=== PATIENT | male | born 1995 | race Caucasian/White ===

== ENCOUNTER 2021-12-08 08:00 | Outpatient (RCR) | payer MEDICARE, MEDICAID, SELFPAY ==
--- NOTE | 2021-11-04 08:09 | HP.OTEVAL ---
Patient's Visit Information ESTELA LEON Jr. is a 26 year old M, referred to Occupational Therapy by Dr. 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 Date of Evaluation: 11/02/21 Occupational Therapist: Josi Preston, OTR/L, CHT - Subjective Pt. is a 26 y/o male. 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 He was sent for this OT evaluation by Dr. Friedman for decreased auto damage appraiser strength of left hand and history of stroke with residual effects. Pt. arrived with grandjose alfredo (legal guardian). Pt. does not speak, he gestures and grunts. Pt. appears to understand questions and directions. Pt. currently works at [employer]. L hand does not bother pt., however lizeth would like pt. to increase L hand strength and increase participation in home tasks. - ADLs Comments: Lizeth assists with bathing, stating that she is particular about his cleanliness. Lizeth reports pt. dresses himself at setup level. ma does meal prep including cutting meat. - ROM ROM Comments: ROM - Strength Shoulder: R25.3 L 21.5 Elbow: R12.8 L12.6 Capacity Planning Analyst: R 15# L 5# Lateral Pinch: R 10# L8# Tripod Pinch: R 10# 2# Tip-to-Tip Pinch: R 8# L3# - Sensation Sensation Comments: no c/o deficits with sensation - Movement Muscle Tone: hypotonia Tremors: essential in L hand - Cognitive Skills Follows Directions: Yes - requires step by step directions - Transfers Transfers: walks independently - Quick DASH-Disab of Arm,Shoulder& Hand Quick DASH Score: 35.0000 - Goals Goal:: Pt. will increase UB shoulder strength by 10# (from R25.3 L 21.5 to R 35.3 L 31.5) to improve independence with home tasks around home by dc. Pt. will increase B hand strength by 10# (from R 15# L 5#) to improve with IADL tasks (fishing) by dc. Goal:: Pt. will improve hand strength for meal prep (ex: to cut up food) by dc. - Rehabilitation General Assessment: Pt was referred by Dr. Friedman for decreased auto damage appraiser strength in L hand & history of stroke with residual effects. Stroke was intra uterine. Lizeth (caregiver) expressed concerns related to hand function and functional performance with IADL tasks. Educated pt. on what to expect from OT services. Completed orange theraband exercises and auto damage appraiser strengthening exercises during the eval. Decreased B hand strength and B UB strength has decreased pt's independence with IADL's and FM tasks. He would benefit from skilled OT services 2x a week for 6 weeks to increase/improve B UB strength, B hand strength, B FM coordination to improve with IADL's such as fishing and home tasks. Pt. & guardian demo'd understanding & agreeable to POC. Therapy session was directly supervised and doc. reviewed and approved by Josi Preston OTR/L,CHT Rehabilitation Potential: Fair - Anticipated Interventions Strengthening, Joint Protection/Energy Conservation, Ergonomic Education, Fine Motor Coord/Alex, Neuro Reeducation, Caregiver Training, Home Program - Visit Plan Frequency: 2x /Week Duration: 6 Weeks General Plan: strengthening TEXT: Thank you for the opportunity to evaluate your patient. For Medicare and Medicare HMO plans, please review the plan of care and approve it. It will need to be FAXED BACK to us at [phone] for Medicare purposes. Please let me know if there are questions or concerns regarding this plan of care. Physician Signature: Date:
--- NOTE | 2021-12-08 08:48 | HP.OTDCSUM ---
It has been my pleasure to treat ESTELA LEON Jr. under orders from Dr. 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 Please see the following information for a summary of their discharge status. % Improvement: 45 Objective/Function: waiter/waitress first class strength R 35# L 20#. shoulder strength R 22.8#, 15.9#. bicep strength R 16# L12.9#. pt. has participated in 6 OT sessions that engaged him in UB strengthening, BTE, and kitchen tasks. Patient Goals: Regain Strength, Improve Fine Motor Skills, Use Hand/Wrist/Arm Normally Again, Resume Hobbies Other: R handed. 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 Preparing simple meals. Prepare Goal:: Pt. will increase UB shoulder strength by 10# (from R25.3 L 21.5 to R 35.3 L 31.5) to improve independence with home tasks around home by dc. Pt. will increase B hand strength by 10# (from R 15# L 5#) to improve with IADL tasks (fishing) by dc. Goal:: Pt. will improve hand strength for meal prep (ex: to cut up food) by dc. Plan: DC this date. Discharge Comments: Lizeth thinks that he is 45% improved with helping at home and overall. Quick Dash score 19. He has attended 6 OT visits. Pt. was progressing towards goals with assisting lizeth at home becoming more indep with IADL tasks, and increasing UB & hand strength for IADL tasks. 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 Thank you for the referral of this patient. Sincerely, Josi Preston, OTR/L, CHT
== END 2021-12-08 14:46 | disposition home or self-care (01) ==
LOC: OT 08:00
PROVIDERS: PCP Student in an Organized Health Care Education/Training Program; Referring Provider Student in an Organized Health Care Education/Training Program; Visit Provider Student in an Organized Health Care Education/Training Program
DX: I69.30 Unspecified sequelae of cerebral infarction (principal); R29.898 Other symptoms and signs involving the musculoskeletal system
CPT/HCPCS: 97110; 97165; 97530

== ENCOUNTER 2022-02-21 07:55 | Outpatient (RCR) | payer MEDICARE, MEDICAID, SELFPAY ==
--- NOTE | 2022-02-21 14:50 | HP.SP.EV_ITS ---
History - History Date of Eval: 02/21/22 Medical Diagnosis (from RX): Stroke Previous speech therapy: Yes Other Relevant Medical History/Diagnoses/Surgery: ESTELA LEON is a 26 year old who presents to [facility] speech therapy today with his guardian, Grandma. Pt s/p CVA. Pt dx with Intellectual disability (F79), hx of stroke with residual effects (I69.30), developmental delay (R62.5), and nonintractable epilepsy (G40.909). Grandma stating the purpose of their appointment today was to be evaluated for a speech-generating device, which has been ordered by the probate court. Upon further probing of Pt's medical hx, Pt reportedly has a speech device that he acquired as a child. Grandma reporting at that time Estela did not prefer to use the device and it was reportedly too big for him. Pt communicates now with some verbal words and pointing. Grandma reporting that Estela's mother has possession of the device - they will reach out to her to acquire. Grandma reporting Estela understands everything said to him. 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 Pt enjoys playing softball, bowling and basketball for the [employer]. Smoking Status: Never smoker - Pain Is pain an issue with your current prescribed condition?: No Cognitive Linguistic Comments - Comments Qualitative Data Pt participated in basic conversation with CHEMIST INTERN and his grandma via answering yes/no questions with verbal response and non-verbal communication via head nods and facial expressions. Pt appearing to follow all conversation held during the evaluation today. Pt communicating let's go and thank you at the end of the session. Further evaluation needed for AAC recommendations. Pt to bring the device he currently has possession of at home from childhood. Discussed trials with this device would determine if a new device evaluation was warranted or if this one could be updated to fit Pt's current needs and lifestyle. Suspect Pt would be very successful with a speech device. Pt appears excited to beginning to learn how to use a device. Should Pt's current device not be appropriate for him, will explore other options on getting him a device. Plan - Plan Plan: Will recommend Pt for weekly outpatient speech therapy to address communication w/speech-generating device. Pt would benefit from direction instruction on how to use the speech device for Pt, Pt?s family, and potentially some direction with workshop staff. Without skilled ST services, the Pt is at risk for difficulty communicating basic, medical, emergent, social wants & needs, and interacting with family/friends at home, during social interactions, and at workshop. - Recommendations Treatment Warranted: Yes Treatment Warranted: Receptive/ Expressive Language, Other: Comment: AAC - Progress Prognosis: Excellent - Frequency Frequency: 1x/Week Additional (Frequency): 60 min sessions Duration: 6 Months - Goal #1-5 Goal #1: Goals to be determined following collection of data with Pt's current speech-generating device at follow-up session. Education - Patient has Indicated that the Following Identified Educational Needs: Cognitively Impaired - Patient Instruction Patient Education: Diagnosis, Treatment Plan Person Taught: Legal Guardian Teaching Method: Discussion, Demonstration Response to teaching: Return demonstration, Verbalize understanding
--- NOTE | 2022-06-08 15:08 | HP.SP.DC_ITS ---
ST Discharge Summary - Discharged: Discharge: ESTELA LEON is a 27 year old male who presented to [facility] on 02/21/22 following a dx of Intellectual disability (F79), hx of stroke with residual effects (I69.30), developmental delay (R62.5), and nonintractable epilepsy (G40.909). Pt attended initial evaluation with recommendations for further evaluation needed with Pt's current AAC he has possession of at home from childhood. Discussed trials with this device would determine if a new device evaluation was warranted or if this one could be updated to fit Pt's current needs and lifestyle. Suspect Pt would be very successful with a speech device. Pt appeared excited to beginning to learn how to use a device. Discussed should Pt's current device not be appropriate for him, will explore other options on getting him a device. After evaluation, follow up visits were not scheduled. Pt being discharged from speech therapy caseload on this date 06/08/22 d/t Pt absence in attending additional treatment visits. Thank you for allowing me to participate in the care of your patient. Will reevaluate at Pt?s request following script from physician.
== END 2022-02-21 19:00 | disposition home or self-care (01) ==
LOC: SP 07:55
PROVIDERS: PCP Student in an Organized Health Care Education/Training Program; Referring Provider Nurse Practitioner Family; Visit Provider Nurse Practitioner Family
DX: F79 Unspecified intellectual disabilities (principal); I69.30 Unspecified sequelae of cerebral infarction; R62.50 Unspecified lack of expected normal physiological development in childhood; G40.909 Epilepsy, unspecified, not intractable, without status epilepticus; R47.89 Other speech disturbances
CPT/HCPCS: 92523

== ENCOUNTER 2022-08-08 16:03 | Emergency (ER) | payer MEDICARE, MEDICAID, SELFPAY ==
[2022-08-08 16:07] VITALS: BP 136/100; PULSE 71; RESP 14; TEMP 36.1; O2SAT 99; BMI 21.2
--- NOTE | 2022-08-08 18:12 | EDS_ITS ---
HPI History of Present Illness Chief Complaint: Laceration Narrative Narrative: History and physical is limited secondary to the patient's intellectual disability/delay and is nonverbal. His grandfather is present at the bedside. 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 He cut his right middle finger on a piece of metal. He is right-hand dominant. They are unsure about his tetanus immunization status. He denies other injury. This happened approximately 3 hours ago. He presents with his right middle finger wrapped in paper towel and Scotch tape to stop the bleeding. Tetanus Immunization: Unknown PFSH PFS Medical History no medical history Allergy/AdvReac Type Severity Reaction Status Date / Time No Known Allergies Allergy Verified 08/08/22 16:06 Surgical History no surgical history Social History Smoking Status: Never smoker ROS ROS ED ROS Narrative Obtained through relative. Limited secondary to patient's IDD. Constitutional: No fever, no chills. HEENT: No sore throat. No neck pain. No loss of vision. No rhinorrhea. Cardiovascular: No chest pain. No palpitations. No pedal edema. Respiratory: No cough, no shortness of breath. Abdominal: No abdominal pain. No nausea. No vomiting. Genitourinary: No dysuria. No hematuria. Musculoskeletal: No myalgias. No arthralgias. Laceration to finger pad of right middle finger. Neurologic: No headaches. No dizziness. No lightheadedness. Skin: No rash. No change in color. Psychiatric: No depression. No anxiety. EXAM Physical Exam Narrative Exam Narrative: Afebrile. Vital signs noted. HEENT: Normocephalic. Atraumatic. PERRL, EOMI. Neck soft and supple. No point tenderness or step off. Cardiovascular: Regular rate and rhythm. No murmurs, rubs, or gallops appreciated. Respiratory: No tachypnea. Lungs clear to auscultation bilaterally. Gastrointestinal: Abdomen soft, nontender, with normoactive bowel sounds. No rebound or guarding. Neurological: Awake. Alert. Nonfocal, nonlateralizing. Skin: No rash. Normal color. No pallor. Inspection of the finger pad of the right middle finger does show a 1 cm laceration, not gaping, with minimal active bleeding. Good capillary refill. Full flexion and extension of right middle finger at DIP and PIP joints, including MCP joint. Musculoskeletal: No pedal edema. Full range of motion extremities. Const Vital Signs: 08/08/22 16:07 Temperature 97 F L Temperature Source Temporal Pulse Rate 71 Respiratory Rate 14 Blood Pressure 136/100 H Blood Pressure Mean 112 Pulse Ox 99 Oxygen Delivery Method Room Air MDM MDM MDM Narrative Medical decision making narrative: Patient was given a Boostrix immunization. Direct pressure was applied with sterile gauze to the wound. Lidocaine 1% will be used as a local anesthetic and I will suture his finger pad closed to achieve hemostasis if it is not achieved through direct pressure. In discussion with his grandfather, this injury was sustained at his workshop but not at his actual workplace, meaning that this is not something that they want to put through the [employer]. See procedure note for details. They were informed of the risk of infection and scarring and acknowledges understanding. As this is not going through the [employer], he will follow-up with his primary care provider in 10 days for suture removal. He is to keep the area clean and dry and to look for signs of infection. I feel he can be discharged safely home with follow-up. Return instructions to the emergency department were reviewed. Disposition is discharged home in stable condition. Procedures Lacerations Right middle finger pad: Length: 0.39 in Depth: Skin Shape: Linear Prep: Sterile Conditions Laceration repair: Irrigated, Lidocaine, Local and Wound explored Irrigated (ml): 200 Number of Sutures/Spring: 3 Suture Information: Ethilon, Simple and 4-0 (3 simple interrupted sutures) Comment: Patient tolerated procedure well. Hemostasis achieved. Discharge Plan Triage Chief Complaint: Laceration ED Provider: Ed Veronica Dx/Rx/DC Orders Clinical Impression: Laceration of finger of right hand, Tfxaauwpzv-gqikujwhv-ynkslmd (DPT) vaccination administered at current visit Instructions: ED Laceration, Hand: All Closures Primary Care Provider: Juan Antonio Friedman Referrals: Juan Antonio Friedman DO [Primary Care Provider] - 10 Day for suture removal Disposition Disposition: Home, Self Care
[2022-08-08] MEDS: Diphth,Pertuss(Acell),Tet Vac 0.5 ML Vial IM (18:58)
[2022-08-08] MEDS: Lidocaine 1% (20 ml mdv) 20 ML Vial INFILT (19:58)
== END 2022-08-08 20:00 | disposition home or self-care (01) ==
PROVIDERS: Emergency Provider Emergency Medicine; PCP Student in an Organized Health Care Education/Training Program; Visit Provider Emergency Medicine
DX: S61.212A Laceration without foreign body of right middle finger without damage to nail, initial encounter (principal); F79 Unspecified intellectual disabilities; R47.9 Unspecified speech disturbances; Y92.69 Other specified industrial and construction area as the place of occurrence of the external cause; Z23 Encounter for immunization; W26.8XXA Contact with other sharp object(s), not elsewhere classified, initial encounter
CPT/HCPCS: 12001; 90471; 90715; 99283

== ENCOUNTER 2023-12-25 11:18 | Emergency (ER) | payer MEDICARE, MEDICAID, SELFPAY ==
[2023-12-25 11:19] VITALS: BP 152/99; PULSE 79; RESP 20; TEMP 36.8; O2SAT 97; BMI 17.6
--- NOTE | 2023-12-25 11:29 | ED.VIS.FALL ---
HPI HPI - Fall History of Present Illness Chief Complaint: Fall Informant: family Occured/Mechanism Occurred: Today Mechanism/Context: Yes same level fall Pain/Injury Location: Right frontal/temporal area Pain Location: head Worsened by: Nothing Relieved by: Nothing Associated Symptoms Associated Symptoms: Positive for Loss of consciousness Narrative Narrative: Patient presents after a fall that occurred today. Patient was apparently playing basketball when he fell. Patient fell forward onto his head. Family states the patient had a brief episode of loss of consciousness. Family states that the patient had a possible seizure today. Family states patient has a history of seizures but has not had a seizure in a long time. Patient is nonverbal and is a poor informant. Because of the unresponsive episode, EMS was called. Patient was placed in a cervical collar and brought to the emergency department. Family states patient is back to his baseline at this time. [facility] Medical History Weakness Epilepsy Development disorder, child CVA (cerebral vascular accident) Intellectual disability Allergy/AdvReac Type Severity Reaction Status Date / Time No Known Allergies Allergy Verified 08/08/22 16:06 Surgical History H/O hernia repair Social History Smoking Status: Never smoker ROS ROS ED Review of Systems ROS Unobtainable: due to mental condition EXAM Physical Exam Const Vital Signs: 12/25/23 11:19 12/25/23 11:27 12/25/23 12:18 Temperature 98.3 F Temperature Source Temporal Pulse Rate 79 82 Respiratory Rate 20 H 20 H Respiratory Effort Normal Non-Labored Respiratory Depth Normal Respiratory Pattern Normal Blood Pressure 152/99 H 155/99 H Blood Pressure Mean 116 117 Pulse Ox 97 96 Oxygen Delivery Method Room Air Room Air Room Air 12/25/23 13:00 12/25/23 14:00 Temperature Temperature Source Pulse Rate 84 85 Respiratory Rate 18 16 Respiratory Effort Respiratory Depth Respiratory Pattern Blood Pressure 152/99 H 147/99 H Blood Pressure Mean 116 115 Pulse Ox 97 96 Oxygen Delivery Method Room Air Positive well nourished and well developed General Appearance ED: well developed and NAD HEENT HEENT Narrative: There is a superficial abrasion and mild tenderness over the right frontal/temporal area. There is no bony crepitance or step-off noted. There is no active bleeding noted. There are no foreign bodies noted. Eyes PERRL Neck Neck Narrative: There is mild tenderness over the cervical spine and paraspinal muscles. There is no bony crepitance or step-off noted. Cervical collar is in place. Resp normal respiratory effort and clear to auscultation bilaterally Cardio regular rate and regular rhythm GI non-distended Palpation: soft Extremity Extremity Narrative: There is an abrasion over the anterior aspect of the right knee. There is no active bleeding noted. There is no foreign body noted. There is good range of motion of the right knee. There is no deformity noted. Neuro oriented x3, CN's II-XII intact bilaterally, moves all extremities, no focal motor deficits and no sensory deficits noted [place] Coma Scale: document GCS findings Spontaneous Obeys Commands Oriented 15 Sensorium / Orientation: alert Motor Exam: strength 5/5 throughout Psych mental status grossly normal MDM MDM MDM Narrative Medical decision making narrative: Differential diagnosis includes closed head injury, intracranial bleeding, cervical spine fracture, seizure, and contusion. CT scan of the brain will be obtained to assess for intracranial bleeding. CT scan of the cervical spine will be obtained to assess for cervical spine fracture. CBC will be obtained to assess for leukocytosis and anemia. Basic metabolic profile will be obtained to assess for electrolyte abnormality and renal function. Tegretol level will be obtained to assess for therapeutic level. Lab Data Attestation: I reviewed the patient's lab results. Lab results narrative: CBC was reviewed and was within normal limits. Basic metabolic profile was reviewed. Sodium was slightly low at 130. Potassium was 3.1. Chloride was slightly low at 93. The remainder was within normal limits. Carbamazepine level was reviewed and was low at less than 0.5. Labs: Laboratory Results - last 24 hr 12/25/23 12:15 WBC 7.6 RBC 4.45 L Hgb 14.5 Hct 40.8 MCV 91.7 MCH 32.6 H MCHC 35.5 RDW Std Deviation 39.5 RDW Coeff of Marco 11.6 Plt Count 155 MPV 9.3 Immature Gran % (Auto) 0.500 Neut % (Auto) 80.7 H Lymph % (Auto) 14.0 L [place] % (Auto) 4.1 Eos % (Auto) 0.3 Baso % (Auto) 0.4 Absolute Neuts (auto) 6.2 Absolute Lymphs (auto) 1.07 Nucleated RBC % 0 Sodium 130 L Potassium 3.1 L Chloride 93 L Carbon Dioxide 30.0 Anion Gap 7 BUN 10 Creatinine 0.79 Estim Creat Clear Calc 99.92 Est GFR (MDRD) Af Amer 149 Est GFR (MDRD) Non-Af 123 BUN/Creatinine Ratio 12.7 Glucose 121 H Calcium 8.6 Carbamazepine < 0.5 L Radiography Diagnostic Testing: Clinical Impression(s) from Imaging Studies Brain CT 12/25/23 12:34 IMPRESSION: Developmental cerebral abnormalities as described on prior MRI scan of the brain. No acute abnormality is seen. Dilated ventricles unchanged. Electronically Signed: Kenn Mathews MD at 12:47 EDT , Cervical Spine CT 12/25/23 12:34 IMPRESSION: Mild degree of disc space narrowing and anterior spondylosis at the C5-C6 level. Reversal of the normal cervical lordosis. Electronically Signed: Kenn Mathews MD at 12:48 EDT , CT scan of the brain was obtained. There is no acute intracranial abnormality. There are developmental cerebral abnormalities previously noted on prior MRI. This was interpreted by the radiologist and was also independently reviewed by myself. CT scan of the cervical spine was obtained. There is mild disc space narrowing and anterior spondylosis at C5-C6. There is no acute fracture noted. There is reversal of the normal cervical lordosis. This was interpreted by the radiologist was also independently reviewed by myself. Discharge Plan Triage Chief Complaint: Fall ED Provider: Dax Lofton Dx/Rx/DC Orders Clinical Impression: Syncope and collapse, Fall Primary Care Provider: Juan Antonio Friedman Referrals: Juan Antonio Friedman DO [Primary Care Provider] - 3-5 Days Print Language: Thai Disposition Disposition: Home, Self Care
[2023-12-25 12:18] VITALS: BP 155/99; PULSE 82; RESP 20; O2SAT 96
[2023-12-25 12:29] LABS: Absolute Lymphocyte Count 1.07 X10^3/uL (0.83-4.51); Absolute Neutrophil Count 6.2 X10^3/uL (2.0-7.7); Basophil# 0.03 X10^3/uL; Basophil% 0.4 % (0-1); Eosinophil# 0.02 X10^3/uL; Eosinophils% 0.3 % (0-5); Hematocrit 40.8 % (40-54); Hemoglobin 14.5 g/dL (13.0-16.5); Lymphocyte # 1.07 X10^3/ul (0.83-4.51); Mean Corp Hgb Conc 35.5 g/dL (32-36); Mean Corpuscular Hgb 32.6 pg (27.0-32.0); Mean Corpuscular Volume 91.7 fL (80-94); Mean Platelet Vol. 9.3 fl (6.2-12.0); Monocyte# 0.31 X10^3/uL; Monocyte% 4.1 % (0-10); NRBC Flagged by Analyzer 0 % (0-5); Neutrophil # 6.15 X10^3/uL (2.7-7.7); Neutrophil % 80.7 % (47-70); Platelet Count 155 K/mm3 (150-450); RBC Distribution Width CV 11.6 % (11.6-14.6); RBC Distribution Width SD 39.5 fl (35.1-43.9); Red Blood Count 4.45 M/mm3 (4.6-6.2); White Blood Count 7.6 K/mm3 (4.4-11.0)
--- NOTE | 2023-12-25 12:34 | CT_ITS ---
STUDY: CT CERVICAL SPINE WITHOUT CONTRAST REASON FOR EXAM: Male, 28 years old. Injury/Pain RADIATION DOSAGE (If Supplied By Facility): CTDIvol = ( 17.76 ) mGy, DLP = ( 411.91 ) mGycm TECHNIQUE: High resolution transaxial imaging was performed without contrast material. Sagittal and coronal images were reconstructed. Individualized dose optimization techniques were used for this CT. COMPARISON: None FINDINGS: Normal craniovertebral junction. Normal anterior atlantoaxial articulation. Normal odontoid process. There is reversal of the normal cervical lordosis. Normal vertebral bodies and posterior osseous elements. C2-3: Normal endplates. Normal disc height and morphology. Normal central canal and intervertebral neuroforamina. C3-4: Normal endplates. Normal disc height and morphology. Normal central canal and intervertebral neuroforamina. C4-5: Normal endplates. Normal disc height and morphology. Normal central canal and intervertebral neuroforamina. C5-6: Mild degree of disc space narrowing with anterior spondylosis. C6-7: Normal endplates. Normal disc height and morphology. Normal central canal and intervertebral neuroforamina. C7-T1: Normal endplates. Normal disc height and morphology. Normal central canal and intervertebral neuroforamina. Normal visualized soft tissue structures. CT/Spine Cervical without Contras IMPRESSION: Mild degree of disc space narrowing and anterior spondylosis at the C5-C6 level. Reversal of the normal cervical lordosis. Electronically Signed: Kenn Mathews MD at 12:48 EDT ,
--- NOTE | 2023-12-25 12:34 | CT_ITS ---
STUDY: CT BRAIN WITHOUT CONTRAST REASON FOR EXAM: Male, 28 years old. Injury/Pain RADIATION DOSAGE (If Supplied By Facility): CTDIvol = ( 44.99 ) mGy, DLP = ( 829.85 ) mGycm TECHNIQUE: Transaxial CT imaging of the brain was performed without administration of intravenous contrast material. Individualized dose optimization techniques were used for this CT. COMPARISON: Comparison is made with prior MRI of the brain dated December 15, 2009. FINDINGS: Normal soft tissue structures. Normal calvarium. The patient has several abnormalities as seen on prior MRI with evidence of prominent CSF spaces in the right frontal parietal region suggestive of prior insult or developmental abnormality. There is evidence of a stable dilatation of the lateral ventricles. Normal basal ganglia and thalami. Normal brainstem. Normal cerebellum. There is no intracranial hemorrhage. There are no findings of an acute ischemic infarction. Normal visualized paranasal sinuses. CT/Brain/Head without Contrast IMPRESSION: Developmental cerebral abnormalities as described on prior MRI scan of the brain. No acute abnormality is seen. Dilated ventricles unchanged. Electronically Signed: Kenn Mathews MD at 12:47 EDT ,
[2023-12-25 12:49] LABS: Anion Gap 7 (5-15); BUN 10 mg/dL (7-18); BUN/Creat Ratio 12.7 RATIO (10-20); Calcium,Total 8.6 mg/dL (8.5-10.1); Chloride 93 mmol/L (98-107); Creatinine, Serum 0.79 mg/dL (0.70-1.30); EST Glomerular Filtration Rate 123 mL/min (>60); Est Glom Filt Rate - Afr Amer 149 mL/min (>60); Estimated Creatinine Clearance 99.92 ml/min; Glucose 121 mg/dL (74-106); Potassium 3.1 mmol/L (3.5-5.1); Sodium Level 130 mmol/L (136-145)
[2023-12-25 12:55] LABS: Carbamazepine (Tegretol) < 0.5 ug/mL (4.0-12.0)
[2023-12-25 13:00] VITALS: BP 152/99; PULSE 84; RESP 18; O2SAT 97
[2023-12-25 14:00] VITALS: BP 147/99; PULSE 85; RESP 16; O2SAT 96
[2023-12-25 15:00] VITALS: BP 128/78; PULSE 72; RESP 16; TEMP 36.6; O2SAT 99
== END 2023-12-25 15:28 | disposition home or self-care (01) ==
PROVIDERS: Emergency Provider Emergency Medicine; PCP Student in an Organized Health Care Education/Training Program; Visit Provider Emergency Medicine
DX: R55 Syncope and collapse (principal); W18.39XA Other fall on same level, initial encounter; Y93.67 Activity, basketball; Z86.73 Personal history of transient ischemic attack (TIA), and cerebral infarction without residual deficits
CPT/HCPCS: 70450; 72125; 80048; 80156; 85025; 99283; A4216